=== PATIENT | female | born 1955 | race Caucasian/White ===

== ENCOUNTER 2024-06-09 19:55 | Emergency (ER) | payer MEDICARE, BC, OTHER ==
[~2024-06-09] VITALS: Ht 162.6 cm; Wt 102.0 kg
[2024-06-09] MEDS ORDERED: Diph, Acellular Pertussis, Tet 0.5 ML/VIAL (Tdap) SDV IM STA (20:05)
[2024-06-09] MEDS ORDERED: AMOXICILLIN & POT CLAVULANATE 875 MG/TAB PO ONE (20:10)
[2024-06-09] MEDS ORDERED: AMOX/K CLAV875 M1 PO (20:11)
[2024-06-09] MEDS ORDERED: HYDROCHLOROT25 MG PO (20:32)
[2024-06-09 21:04] VITALS: BP 136/78
== END 2024-06-09 21:04 | disposition home or self-care (01) ==
LOC: ED 19:55
DX: S51.851A Open bite of right forearm, initial encounter (principal); I10 Essential (primary) hypertension; K21.9 Gastro-esophageal reflux disease without esophagitis; W54.0XXA Bitten by dog, initial encounter; Y93.89 Activity, other specified; Y92.009 Unspecified place in unspecified non-institutional (private) residence as the place of occurrence of the external cause